=== PATIENT | male | born 1945 | race Caucasian/White ===

== ENCOUNTER 2023-08-22 14:54 | Emergency (ER) | payer MEDICARE ==
[~2023-08-22] VITALS: Ht 172.7 cm; Wt 99.8 kg
[2023-08-22 15:27] VITALS: BP 117/79; PULSE 73; RESP 18
[2023-08-22] MEDS: TETRACAINE HCL 0.5% 4 ML OPHTH SOLN OP SCH (16:30)
[2023-08-22] MEDS: FLUORESCEIN SODIUM 1 STRIP STRIP OP SCH (16:30)
[2023-08-22] MEDS ORDERED: ERYT1OIN7 OP (16:44)
== END 2023-08-22 17:01 | disposition home or self-care (01) ==
LOC: EDH 14:54
DX: H11.422 Conjunctival edema, left eye (principal); I10 Essential (primary) hypertension; E03.9 Hypothyroidism, unspecified; E78.00 Pure hypercholesterolemia, unspecified; Z98.890 Other specified postprocedural states
CPT/HCPCS: 65222